=== PATIENT | male | born 1985 | race Hispanic/Latino ===

== ENCOUNTER 2025-01-30 23:27 | Emergency (ER) | payer OTHER ==
[~2025-01-30] VITALS: Ht 180.3 cm; Wt 104.0 kg
[2025-01-31 00:13] LABS: BASOPHILS # (AUTO) 0.05 K/uL (0.00-0.20); BASOPHILS % (AUTO) 0.5 % (0.0-5.0); EOSINOPHILS # (AUTO) 0.05 K/uL (0.00-0.70); EOSINOPHILS % (AUTO) 0.5 % (0.0-8.0); HEMATOCRIT 45.8 % (42-54); IMMATURE GRANULOCYTE ABSOLUTE 0.08 K/uL (0-1); LYMPHOCYTES # (AUTO) 2.3 K/uL (1.0-4.8); LYMPHOCYTES % (AUTO) 21.6 % (21.0-51.0); MEAN CORPUSCULAR HEMOGLOBIN 28.4 pg (27.0-33.0); MEAN CORPUSCULAR HGB CONC 33.8 g/dL (32.0-36.0); MONOCYTES # (AUTO) 0.6 K/uL (0.1-1.0); NEUTROPHILS # (AUTO) 7.4 K/uL (1.8-7.7); NEUTROPHILS % (AUTO) 70.6 % (40.0-77.0); PLATELET COUNT (AUTO) 174 K/uL (130-400); RED BLOOD CELL COUNT(AUTO) 5.45 MIL/uL (4.50-6.20); RED CELL DISTRIBUTION WIDTH 12.6 % (11.0-15.5); WHITE BLOOD COUNT (AUTO) 10.5 K/uL (4.8-10.8)
[2025-01-31 00:18] LABS: CREATININE 1.4 mg/dL (0.5-1.3); POTASSIUM 3.2 mmol/L (3.5-5.1)
[2025-01-31] MEDS: 0.9%NACL 1000ML 1,000 ML IV ONE (00:20)
[2025-01-31 00:23] LABS: MAGNESIUM 1.8 mg/dL (1.80-2.40)
--- NOTE | 2025-01-31 01:00 | ERN ---
General Chief Complaint: Dizzy/Light Headed Stated Complaint: DIZZINESS Time Seen by MD: 23:52 Time Seen by Midlevel: 23:52 Source: patient History of Present Illness Initial Comments The patient is a 44-year-old male with a past medical history of hypertension on 2.5 mg of lisinopril presenting to the emergency department for evaluation of dizziness and palpitations. Patient states he was playing volleyball outside for approximately 45 minutes when his symptoms developed. On arrival he does report feeling anxious and reports chest tightness. Denies any other symptoms Allergies: Coded Allergies: No Known Drug Allergies (Unverified Allergy, Unknown, 01/30/25) Past Medical History Past Medical History: Hypertension Past Surgical History: None ROS Dictation CONSTITUTIONAL: Negative except for HPI HEAD/FACE: Negative except for HPI EENT: Negative except for HPI RESPIRATORY: Negative except for HPI GASTROINTESTINAL/ABDOMINAL: Negative except for HPI GENITOURINARY: Negative except for HPI MUSCULOSKELETAL: Negative except for HPI INTEGUMENTARY: Negative except for HPI NEUROLOGICAL/PSYCH: Negative except for HPI HEMATOLOGIC/LYMPHATIC: Negative except for HPI All Systems Negative, Except as noted above. 13 point review of systems assessed and all negative except for above. Physical Exam Physical Exam Dictation Vital Signs reviewed General Appearance: Alert, oriented x 3, no acute distress, well developed, nourished. Head and Face: non-traumatic. Eyes: PERRL, pink conjunctivas, eyelid no trauma, anterior chamber with arcus senilis. Ears: Pinnas intact and no signs of trauma or erythema ear canals clear and no discharge TM no erythema Nose: No discharge, no bleeding. Oropharynx: Mouth normal, tongue pink, pharynx clear,no erythema, tonsils no exudates, no abscesses noted, mucous membrane moist Neck: Supple, non-tender, no thyromegaly, no masses, no JVD, no bruits Breast:Deferred Chest:No tenderness, no crepitus, no paradoxical movement, no retractions Lungs:Clear, well-ventilated, symmetric, no rales, no wheezing, no rhonchi, no stridor, good breath sounds bilaterally Heart: Regular rate, regular rhythm, no murmur, no gallops Vascular: no peripheral edema, Abdomen: Soft, positive bowel sounds, nondistended, no guarding, nontender, no rebound, no masses no hepatomegaly, no splenomegaly, no Newby's sign, no hernias. Rectal: Deferred Genital: Deferred Neurological: Normal speech, motor function intact, sensory function intact Musculoskeletal: Neck nontender, full range of motion, back nontender, full range of motion, Extremities: nontender, full range of motion Skin: Color pink, dry, no turgor, no rash, no lacerations, no abrasions, no contusions. Lymphatic: Deferred Results Laboratory and Microbiology Lab and Micro Result Laboratory Tests Test 01/30/25 23:40 White Blood Count 10.5 K/uL (4.8-10.8) Red Blood Count 5.45 MIL/uL (4.50-6.20) Hemoglobin 15.5 g/dL (14.0-18.0) Hematocrit 45.8 % (42-54) Mean Corpuscular Volume 84.0 fL (79-99) Mean Corpuscular Hemoglobin 28.4 pg (27.0-33.0) Mean Corpuscular Hemoglobin Concent 33.8 g/dL (32.0-36.0) Red Cell Distribution Width 12.6 % (11.0-15.5) Platelet Count 174 K/uL (130-400) Mean Platelet Volume 13.1 fL (7.5-10.5) H Immature Granulocyte % (Auto) 0.8 % (0-1) Neutrophils (%) (Auto) 70.6 % (40.0-77.0) Lymphocytes (%) (Auto) 21.6 % (21.0-51.0) Monocytes (%) (Auto) 6.0 % (3.0-13.0) Eosinophils (%) (Auto) 0.5 % (0.0-8.0) Basophils (%) (Auto) 0.5 % (0.0-5.0) Neutrophils # (Auto) 7.4 K/uL (1.8-7.7) Lymphocytes # (Auto) 2.3 K/uL (1.0-4.8) Monocytes # (Auto) 0.6 K/uL (0.1-1.0) Eosinophils # (Auto) 0.05 K/uL (0.00-0.70) Basophils # (Auto) 0.05 K/uL (0.00-0.20) Absolute Immature Granulocyte (auto 0.08 K/uL (0-1) Nucleated Red Blood Cells 0.0 % (0.0-0.19) Sodium Level 136 mmol/L (136-145) Potassium Level 3.2 mmol/L (3.5-5.1) L Chloride Level 100 mmol/L (101-111) L Carbon Dioxide Level 26 mmol/L (21-32) Blood Urea Nitrogen 25 mg/dL (7-18) H Creatinine 1.4 mg/dL (0.5-1.3) H Glomerular Filtration Rate Calc 65 mL/min (>90) Random Glucose 156 mg/dL (70-105) H Total Calcium 8.8 mg/dL (8.5-10.1) Magnesium Level 1.80 mg/dL (1.80-2.40) Total Creatine Kinase 255 U/L (21-232) H Troponin I High Sensitivity 8 ng/L (4-75) Labs Reviewed?: Yes MDM MDM: 39-year-old male with a past medical history patient presenting to the ER for evaluation of palpitations after playing volleyball outside for 45 minutes. Cardiac workup initiated. EKG shows normal sinus rhythm. No evidence of a STEMI. No bundle branch blocks. CBC is unremarkable. Chemistries shows slightly elevated BUN and creatinine consistent with dehydration. Patient is given 1 L of IV fluids and will be discharged home Differential diagnosis: Dehydration, electrolyte abnormality, anxiety, ACS There are no social concerns with this patient. Prescription drug management Prescriptions will include: None Medical management and examination interpretation discussions were had by me with other qualified healthcare professionals as indicated for the patient's care. ED Course Orders Procedure Category Date Status Time 12 Lead Ekg Tracing- EKG 01/30/25 Logged Technical 23:35 Cbc With Differential LAB 01/30/25 Complete 23:59 Basic Metabolic Panel LAB 01/30/25 Complete 23:59 Drug Screen Urine LAB 01/30/25 In Process 23:59 Creatine Kinase, Total LAB 01/30/25 Complete 23:59 Magnesium LAB 01/30/25 Complete 23:59 Troponin I High LAB 01/30/25 Complete Sensitivity 23:59 Chest 1vw RAD 01/30/25 Logged 23:59 0.9%Nacl 1000ml (Ns PHA 01/31/25 Complete 1000ml) 00:00 Current Medications Medications (Trade) Dose Ordered Sig/Mann Route PRN Reason Start Time Stop Time Status Last Admin Dose Admin Sodium Chloride 1,000 ml @ 0 mls/hr ONCE ONCE IV 01/31/25 00:00 01/31/25 00:06 DC 01/31/25 00:20 Vital Signs Date Time Temp Pulse Resp B/P (MAP) Pulse Ox O2 Delivery O2 Flow Rate FiO2 01/31/25 00:00 106 18 178/104 98 Room Air* 0 21 01/30/25 23:29 98.2 109 20 158/102 97 Room Air DX & DISP Disposition: Discharge Departure Impression: Primary Impression: Mild dehydration Additional Impression: Hypokalemia Condition: Stable Referrals: SELF,REFERRAL (PCP) Time of Disposition: 00:42 I have reviewed the case, and I agree with, Diagnosis and Plan I performed the substantive portion of the visit. I have reviewed and personally made and approve the management plan that is documented in the note by myself or the ZEV. I acknowledge for responsibility for the patient's management plan. SOBIA ESCOBAR January 31, 2025 01:00
[2025-01-31] MEDS: PoTASSium BIcarbonate/CIT AC 25 MEQ TABLET.EFF PO ONE (01:16)
[2025-01-31 01:22] VITALS: BP 148/89; PULSE 91; RESP 16; TEMP 98.5; O2SAT 98
[2025-01-31 01:27] LABS: AMPHET/METH SCREEN,URINE NEGATIVE (NEGATIVE); BARBITURATE SCREEN, URINE NEGATIVE (NEGATIVE); BENZODIAZEPINES SCREEN,URINE NEGATIVE (NEGATIVE); CANNABINOID SCREEN,URINE NEGATIVE (NEGATIVE); COCAINE SCREEN,URINE NEGATIVE (NEGATIVE); OPIATE SCREEN,URINE NEGATIVE (NEGATIVE); PHENCYCLIDINE SCREEN,URINE NEGATIVE (NEGATIVE)
--- NOTE | 2025-01-31 08:47 | HMCIMG ---
PORTABLE CHEST RADIOGRAPH INDICATION: sob COMPARISON: None FINDINGS: Heart size is normal. The pulmonary vascularity and wendy appear normal. No abnormal pulmonary parenchymal opacity or consolidation identified. No significant pleural effusion noted. No pneumothorax detected. IMPRESSION: No radiographic evidence for any acute cardiopulmonary process.
--- NOTE | 2025-01-31 11:22 | EKG ---
[facility] Test Date: 2025-01-30 Test Time: 23:33:42 Pat Name: RADHA MORALES Department: [facility] Room: Gender: M Prize Coordinator: [birth year] : 1985 Requested By: CHEIKH CASTRO Order Number: [id number] Reading MD: Jeniffer Rivas Measurements Intervals [place] Rate: 103 P: 54 [place]: 150 QRS: -39 QRSD: 98 T: 59 QT: 329 QTc: 432 Interpretive Statements Sinus tachycardia Left axis deviation ST elev, probable normal early repol pattern No previous ECG available for comparison Electronically Signed On 01-31-2025 14:31:47 CDT by Jeniffer Rivas Please click the below link to view image of tracing.
== END 2025-01-31 01:23 | disposition home or self-care (01) ==
LOC: EDH 23:27
DX: E86.0 Dehydration (principal); E87.6 Hypokalemia; I10 Essential (primary) hypertension
CPT/HCPCS: 99285; 71045; 82550; 83735; 84484; 80048; 80305; 85025; 36415; 93005; 96360; J7030